=== PATIENT | male | born 1995 | race African-American/Black ===

== ENCOUNTER 2023-12-09 21:52 | Emergency (ER) | payer SELFPAY | END 2023-12-09 22:18 | disposition home or self-care (01) | LOC: CSHERS 21:52 | DX: L03.314 Cellulitis of groin (principal) | CPT/HCPCS: 99283 ==

== ENCOUNTER 2024-01-26 15:52 | Emergency (ER) | payer SELFPAY ==
[2024-01-26] MEDS ORDERED: Acetaminophen 500 MG TAB ONE (17:35)
== END 2024-01-26 17:47 | disposition home or self-care (01) ==
LOC: CSHERS 15:52
DX: S90.31XA Contusion of right foot, initial encounter (principal); V86.95XA Unspecified occupant of 3- or 4- wheeled all-terrain vehicle (ATV) injured in nontraffic accident, initial encounter